=== PATIENT | female | born 1965 | race Hispanic/Latino ===

== ENCOUNTER → 2024-02-20 | Outpatient (REF) | payer OTHER | LOC: US 08:44 | PROVIDERS: ATTEND Nurse Practitioner Family | DX: R18.8 Other ascites (principal); K74.60 Unspecified cirrhosis of liver; Z12.9 Encounter for screening for malignant neoplasm, site unspecified | CPT/HCPCS: 76700 ==

== ENCOUNTER → 2024-08-21 | Outpatient (REF) | payer OTHER | LOC: US 08:16 | PROVIDERS: ATTEND Registered Nurse | DX: K74.69 Other cirrhosis of liver (principal); R16.1 Splenomegaly, not elsewhere classified | CPT/HCPCS: 76700 ==

== ENCOUNTER → 2025-04-14 | Day surgery (SDC) | payer OTHER ==
[2025-04-08 09:09] LABS: BASOPHILS % 0.4 % (0.0-1.0); EOSINOPHILS % 7.1 % (0.0-6.0); LYMPHOCYTES % 21.1 % (18.0-39.1); MONOCYTES % 11.4 % (4.4-11.3); NEUTROPHILS % 59.1 % (38.7-80.0); RED CELL DISTRIBUTION WIDTH 14.8 % (11.7-14.4)
[2025-04-08 09:37] LABS: EST GLOMERULAR FILTRATION RATE 71.0 ML/MIN (>=60)
[2025-04-08 09:42] LABS: INR 1.1
[~2025-04-14] MED LIST: ALDACTONE100 MG PO; FUROSEMIDE40 MG PO; JANUVIA100 MG PO; LIDOCAINE HCL 2% LOCAL INJ 5 ML SDV VIAL INJ ONE; OMEPRAZOLE MAGN20 MG PO; PROPOFOL IV EMULSION 50 ML IV ONE; PROPRANOLOL HCL10 MG PO; REPAGLINIDE0.5 MG PO; URSODIOL250 MG PO
[2025-04-14] MEDS: LACTATED RINGER'S 1,000 ML ONE (08:58)
[2025-04-14 11:03] VITALS: TEMP 98.2
[2025-04-14 11:30] VITALS: BP 150/76; PULSE 67; RESP 18; O2SAT 99
== END | disposition home or self-care (01) ==
LOC: OR 07:00
PROVIDERS: ATTEND Internal Medicine Gastroenterology
DX: K74.60 Unspecified cirrhosis of liver (principal); I85.10 Secondary esophageal varices without bleeding; K29.30 Chronic superficial gastritis without bleeding; E11.9 Type 2 diabetes mellitus without complications; K76.6 Portal hypertension; K31.89 Other diseases of stomach and duodenum; Z79.84 Long term (current) use of oral hypoglycemic drugs; Z68.35 Body mass index [BMI] 35.0-35.9, adult; Z88.0 Allergy status to penicillin; Z01.810 Encounter for preprocedural cardiovascular examination; Z01.812 Encounter for preprocedural laboratory examination
CPT/HCPCS: 36415 ×2; 43235; 80053; 82948; 85025; 85610; 85730; 93005; J2003; J2704; J7121; 43239

== ENCOUNTER 2025-06-02 16:54 | Emergency (ER) | payer OTHER ==
[~2025-06-02] VITALS: Ht 152.4 cm; Wt 84.4 kg
[~2025-06-02 16:54] MED LIST changes: -LIDOCAINE HCL 2% LOCAL INJ 5 ML SDV VIAL INJ ONE; -PROPOFOL IV EMULSION 50 ML IV ONE
[2025-06-02 18:10] LABS: BASOPHILS % 0.3 % (0.0-1.0); EOSINOPHILS % 5.8 % (0.0-6.0); LYMPHOCYTES % 16.8 % (18.0-39.1); MONOCYTES % 10.2 % (4.4-11.3); NEUTROPHILS % 66.2 % (38.7-80.0); RED CELL DISTRIBUTION WIDTH 14.6 % (11.7-14.4)
[2025-06-02 18:24] LABS: EST GLOMERULAR FILTRATION RATE 58.0 ML/MIN (>=60)
[2025-06-02 22:22] VITALS: PULSE 64; RESP 15; TEMP 98.2; O2SAT 97
[2025-06-02] MEDS ORDERED: ULTRAM 50MG50 MG PO (22:30)
[2025-06-03] MEDS ORDERED: IOPAMIDOL 370 MG/ML 100 ML INFUS..BTL INJ ONE (04:34)
== END 2025-06-02 22:31 | disposition home or self-care (01) ==
LOC: ER 17:28
DX: C06.0 Malignant neoplasm of cheek mucosa (principal); R59.1 Generalized enlarged lymph nodes
CPT/HCPCS: 36415; 70487; 80053; 85025; 99283; Q9967